=== PATIENT | male | born 1945 | race Caucasian/White ===

== ENCOUNTER 2017-08-29 09:20 | Inpatient (IN) | payer OTHER ==
[2017-08-29] MEDS ORDERED: DILTIAZEM-D5W 125MG/125ML DRIP 125 ML IV ×2 (10:00→16:30)
[2017-08-29 10:05] LABS: ADD MAN DIFF? NO
[2017-08-29] MEDS: ALBUTEROL 0.5% (NEB) 2.5 MG/0.5 ML AMP INH ×2 (10:08→14:41)
[2017-08-29] MEDS: IPRATROPIUM (NEB) 0.5 MG/2.5 ML AMP INH (10:08)
[2017-08-29 10:09] LABS: BASOPHILS % 0.1 % (0.0-2.0); EOSINOPHILS % 0.1 % (0.0-7.0); HEMATOCRIT 37.4 % (42.0-52.0); HEMOGLOBIN 12.4 g/dl (14.0-18.0); LYMPHOCYTES # 1.1 10^3/ul (0.8-2.9); LYMPHOCYTES % 12.7 % (15.0-51.0); MEAN CORPUSCULAR HEMOGLOBIN 30.8 pg (29.0-33.0); MEAN CORPUSCULAR HGB CONC 33.2 g/dl (32.0-37.0); MEAN CORPUSCULAR VOLUME 92.8 fl (82.0-101.0); MEAN PLATELET VOLUME 10.1 fl (7.4-10.4); MONOCYTE # 0.7 10^3/ul (0.3-0.9); MONOCYTES % 8.1 % (0.0-11.0); NEUTROPHIL # 6.6 10^3/ul (1.6-7.5); NEUTROPHILS % 78.8 % (39.0-77.0); PLATELET COUNT 272 10^3/UL (140-415); RED BLOOD COUNT 4.03 10^6/ul (4.70-6.10); RED CELL DISTRIBUTION WIDTH 12.5 % (11.5-14.5)
[2017-08-29 10:09] LABS: WHITE BLOOD COUNT 8.4 10^3/ul (4.8-10.8)
[2017-08-29] MEDS: METHYLPREDNISOLONE 125 MG INJ IV (10:16)
[2017-08-29] MEDS: DILTIAZEM 25 MG INJ IV (10:16)
[2017-08-29] MEDS: MAGNESIUM SULFATE 2 GM/50 ML 50 ML IVPB (10:17)
[2017-08-29 10:23] LABS: INR 1.07; PT RATIO 1.1
[2017-08-29 10:28] LABS: ALANINE AMINOTRANSFERASE 52 IU/L (13-69); ALBUMIN 4.2 g/dl (3.3-4.9); ALKALINE PHOSPHATASE 108 IU/L (42-121); ANION GAP 17 (8-16); ASPARTATE AMINO TRANSFERASE 29 IU/L (15-46); BILIRUBIN,INDIRECT 0.4 mg/dl (0-1.1); BILIRUBIN,TOTAL 0.4 mg/dl (0.2-1.3); BLOOD UREA NITROGEN 20 mg/dl (7-20); CALCIUM 9.2 mg/dl (8.4-10.2); CARBON DIOXIDE 25 mmol/L (21-31); CHLORIDE 96 mmol/L (97-110); CREATININE 0.97 mg/dl (0.61-1.24); GLUCOSE 132 mg/dl (70-220); POTASSIUM 4.8 mmol/L (3.5-5.1); SODIUM 133 mmol/L (135-144); TOTAL PROTEIN 7.2 g/dl (6.1-8.1)
[2017-08-29 10:39] LABS: B-TYPE NATRIURETIC PEPTIDE 9070 PG/ML (0-125); TROPONIN-I 0.069 ng/ml (0.00-0.12)
[2017-08-29] MEDS: SOD CHLORIDE 0.9% 500 ML IV (10:47)
[2017-08-29] MEDS: DILTIAZEM-D5W 125MG/125ML DRIP 125 ML IV (11:20)
[2017-08-29 12:21] LABS: LACTIC ACID 3.8 mmol/L (0.5-2.0)
[2017-08-29] MEDS: CEFTRIAXONE 1 GM/50 ML (PMX) 50 ML IVPB (12:46)
[2017-08-29] MEDS: AZITHROMYCIN 500MG/NS (PMX) 250 ML IV (13:14)
[2017-08-29 13:52] LABS: LACTIC ACID 3.8 mmol/L (0.5-2.0)
[2017-08-29] MEDS ORDERED: ONDANSETRON 4 MG INJ IV ×2 (14:00→16:30)
[2017-08-29] MEDS ORDERED: ACETAMINOPHEN 325 MG TAB PO ×2 (14:00→16:30)
[2017-08-29 16:17] LABS: LACTIC ACID 7.6 mmol/L (0.5-2.0)
[2017-08-29] MEDS ORDERED: VANCOMYCIN IV PER PHARMACY XX (16:30)
[2017-08-29] MEDS: DOCUSATE SODIUM 100 MG CAP PO ×2 (16:30→21:55)
[2017-08-29] MEDS ORDERED: NITROGLYCERIN (SL) 0.4 MG TAB SL (16:30)
[2017-08-29] MEDS ORDERED: morphine 2 MG INJ IV (16:30)
[2017-08-29] MEDS ORDERED: LEVALBUTEROL (NEB) 0.31 MG/3 ML AMP HHN (16:30)
[2017-08-29] MEDS: METOPROLOL 25 MG TAB PO ×2 (17:16→21:55)
[2017-08-29] MEDS: IPRATROPIUM (NEB) 0.5 MG/2.5 ML AMP HHN ×2 (18:23→20:28)
[2017-08-29] MEDS: LEVALBUTEROL (NEB) 0.31 MG/3 ML AMP HHN ×2 (18:23→20:28)
[2017-08-29 18:26] LABS: CREATINE KINASE 193 IU/L (23-200)
[2017-08-29] MEDS: SOD CHLORIDE 0.9% 1,000 ML IV (18:32)
[2017-08-29 18:38] LABS: CK INDEX 3.6; TROPONIN-I 0.071 ng/ml (0.00-0.12)
[2017-08-29 18:41] LABS: CK-MB 7.01 ng/ml (0.0-2.4)
[2017-08-29] MEDS: VANCOMYCIN 1.5 GM in SOD CHLORIDE 0.9% 250 ML IVPB (18:52)
[2017-08-29] MEDS: FAMOTIDINE 20 MG INJ IV (21:00)
[2017-08-29] MEDS: clonAZEPAM 0.5 MG TAB PO (21:55)
[2017-08-29] MEDS: CEFEPIME 1GM/50 ML (PMX) 50 ML IVPB (21:56)
[2017-08-29] MEDS: FUROSEMIDE 40 MG INJ IV (21:56)
[2017-08-29 23:08] LABS: CREATINE KINASE 181 IU/L (23-200)
[2017-08-29 23:20] LABS: CK INDEX 3.6
[2017-08-30] MEDS: IPRATROPIUM (NEB) 0.5 MG/2.5 ML AMP HHN ×7 (00:50→20:00)
[2017-08-30] MEDS: LEVALBUTEROL (NEB) 0.31 MG/3 ML AMP HHN ×7 (00:50→20:01)
[2017-08-30] MEDS: HALOPERIDOL 5 MG INJ IM (01:24)
[2017-08-30] MEDS: DILTIAZEM 25 MG INJ IV (07:03)
[2017-08-30] MEDS: VANCOMYCIN 1 GM 250 ML IVPB ×2 (08:07→20:35)
[2017-08-30] MEDS: FUROSEMIDE 40 MG INJ IV ×2 (08:11→21:09)
[2017-08-30] MEDS: ENOXAPARIN 40 MG/0.4 ML SYG SC (08:12)
[2017-08-30] MEDS: CEFEPIME 1GM/50 ML (PMX) 50 ML IVPB ×2 (08:13→21:11)
[2017-08-30] MEDS: FAMOTIDINE 20 MG INJ IV ×2 (08:14→21:10)
[2017-08-30] MEDS: DOCUSATE SODIUM 100 MG CAP PO (08:17)
[2017-08-30] MEDS: clonAZEPAM 0.5 MG TAB PO ×2 (08:17→21:08)
[2017-08-30] MEDS: METOPROLOL 25 MG TAB PO ×2 (08:18→21:09)
[2017-08-30] MEDS: ASPIRIN 81 MG TAB PO (08:18)
[2017-08-30] MEDS: SOD CHLORIDE 0.9% 1,000 ML IV (08:21)
[2017-08-30 08:56] LABS: ADD MAN DIFF? NO
[2017-08-30 09:04] LABS: WHITE BLOOD COUNT 13.3 10^3/ul (4.8-10.8)
[2017-08-30 09:04] LABS: BASOPHILS % 0.2 % (0.0-2.0); HEMATOCRIT 34.2 % (42.0-52.0); HEMOGLOBIN 11.7 g/dl (14.0-18.0); LYMPHOCYTES # 1.4 10^3/ul (0.8-2.9); LYMPHOCYTES % 10.9 % (15.0-51.0); MEAN CORPUSCULAR HEMOGLOBIN 30.9 pg (29.0-33.0); MEAN CORPUSCULAR HGB CONC 34.2 g/dl (32.0-37.0); MEAN CORPUSCULAR VOLUME 90.2 fl (82.0-101.0); MEAN PLATELET VOLUME 10.4 fl (7.4-10.4); MONOCYTE # 1.5 10^3/ul (0.3-0.9); MONOCYTES % 11.2 % (0.0-11.0); NEUTROPHIL # 10.2 10^3/ul (1.6-7.5); NEUTROPHILS % 77.2 % (39.0-77.0); PLATELET COUNT 252 10^3/UL (140-415); RED BLOOD COUNT 3.79 10^6/ul (4.70-6.10); RED CELL DISTRIBUTION WIDTH 12.6 % (11.5-14.5)
[2017-08-30 09:12] LABS: HEMOGLOBIN A1C 5.6 % (0-5.9)
[2017-08-30 09:21] LABS: LACTIC ACID 2.3 mmol/L (0.5-2.0)
[2017-08-30 09:31] LABS: ANION GAP 17 (8-16); BLOOD UREA NITROGEN 31 mg/dl (7-20); CALCIUM 8.8 mg/dl (8.4-10.2); CARBON DIOXIDE 21 mmol/L (21-31); CHLORIDE 101 mmol/L (97-110); CHOL/HDL RATIO 5.1 RATIO; CHOLESTEROL 148 mg/dl (100-200); CREATININE 1.19 mg/dl (0.61-1.24); GLUCOSE 120 mg/dl (70-220); HDL CHOLESTEROL 29 mg/dl (31-75); LDL CHOLESTEROL,CALCULATED 95 mg/dl; MAGNESIUM 2.5 mg/dl (1.7-2.5); POTASSIUM 5.1 mmol/L (3.5-5.1); SODIUM 134 mmol/L (135-144); TRIGLYCERIDES 118 mg/dl (0-149)
[2017-08-30] MEDS: DILTIAZEM-D5W 125MG/125ML DRIP 125 ML IV (09:50)
[2017-08-30 11:15] LABS: ADD UMIC NO; UR ASCORBIC ACID NEGATIVE (NEGATIVE); UR BILIRUBIN (Dip) NEGATIVE (NEGATIVE); UR BLOOD (Dip) NEGATIVE (NEGATIVE); UR CLARITY CLEAR (CLEAR); UR COLOR YELLOW (YELLOW); UR GLUCOSE (Dip) NEGATIVE (NEGATIVE); UR KETONES (Dip) NEGATIVE (NEGATIVE); UR LEUKOCYTE ESTERASE (Dip) NEGATIVE Leu/ul (NEGATIVE); UR NITRITE (Dip) NEGATIVE (NEGATIVE); UR SPECIFIC GRAVITY (Dip) 1.011 (1.003-1.030); UR TOTAL PROTEIN (Dip) NEGATIVE (NEGATIVE); UR UROBILINOGEN (Dip) NEGATIVE (NEGATIVE)
[2017-08-30 12:04] LABS: Allen Test ACCEPTAB; Arterial Base Excess -3.5 mmol/L (-3.0-3); Arterial Blood Gas Oxygen Sat 96.3 mmHG (95.0-100.0); Arterial COHb 0.3 % (0.0-3.0); Arterial Fraction of Oxyhgb 95.9 % (93.0-99.0); Arterial HCO3 20.7 mmol/L (22.0-26.0); Arterial MetHb 0.1 % (0.0-1.5); Arterial Total Hemglobin 12.5 g/dl (12.0-18.0); Arterial pCO2 34.8 mmhg (35-45); MODE NASAL CANNULA; Site Right Radial
[2017-08-30] MEDS: METHYLPREDNISOLONE 125 MG INJ IV ×2 (16:54→21:09)
[2017-08-30] MEDS: DIGOXIN 500 MCG INJ IV (17:20)
[2017-08-30] MEDS: ENOXAPARIN 80 MG/0.8 ML SYG SC (21:10)
[2017-08-31] MEDS: IPRATROPIUM (NEB) 0.5 MG/2.5 ML AMP HHN ×6 (00:21→20:35)
[2017-08-31] MEDS: LEVALBUTEROL (NEB) 0.31 MG/3 ML AMP HHN ×6 (00:21→20:35)
[2017-08-31] MEDS: DIGOXIN 500 MCG INJ IV (01:13)
[2017-08-31] MEDS: DOCUSATE SODIUM 100 MG CAP PO ×2 (04:30→14:13)
[2017-08-31] MEDS: METHYLPREDNISOLONE 125 MG INJ IV ×3 (06:04→22:13)
[2017-08-31] MEDS: SOD CHLORIDE 0.9% 1,000 ML IV ×2 (07:15→09:05)
[2017-08-31] MEDS: ENOXAPARIN 80 MG/0.8 ML SYG SC ×2 (08:19→21:39)
[2017-08-31] MEDS: FUROSEMIDE 40 MG INJ IV ×2 (08:20→21:37)
[2017-08-31] MEDS: FAMOTIDINE 20 MG INJ IV ×2 (08:22→21:34)
[2017-08-31] MEDS: clonAZEPAM 0.5 MG TAB PO ×2 (08:22→21:35)
[2017-08-31] MEDS: ASPIRIN 81 MG TAB PO (08:23)
[2017-08-31] MEDS: METOPROLOL 25 MG TAB PO ×2 (08:23→21:37)
[2017-08-31] MEDS: CEFEPIME 1GM/50 ML (PMX) 50 ML IVPB ×2 (08:25→21:34)
[2017-08-31 08:49] LABS: LACTIC ACID 1.8 mmol/L (0.5-2.0)
[2017-08-31 08:54] LABS: VANCOMYCIN,TROUGH 17.3 ug/ml (10.0-20.0)
[2017-08-31] MEDS: VANCOMYCIN 1 GM 250 ML IVPB (09:04)
[2017-08-31 22:20] LABS: AADO2 Arterial 231.1 mmHg (7.0-24.0); Allen Test ACCEPTAB; Arterial Base Excess -3.5 mmol/L (-3.0-3); Arterial Blood Gas Oxygen Sat 96.1 mmHG (95.0-100.0); Arterial COHb 0 % (0.0-3.0); Arterial HCO3 20.3 mmol/L (22.0-26.0); Arterial MetHb 0.1 % (0.0-1.5); Arterial Total Hemglobin 13.4 g/dl (12.0-18.0); Arterial pCO2 33.2 mmhg (35-45); Site Left Radial
[2017-09-01] MEDS: VANCOMYCIN 750 MG in DEXTROSE 5% 150 ML IVPB ×3 (00:15→21:51)
[2017-09-01] MEDS: LEVALBUTEROL (NEB) 0.31 MG/3 ML AMP HHN ×5 (01:07→17:44)
[2017-09-01] MEDS: IPRATROPIUM (NEB) 0.5 MG/2.5 ML AMP HHN ×5 (01:07→17:44)
[2017-09-01 04:48] LABS: MODE VAPOTHERM
[2017-09-01] MEDS: DOCUSATE SODIUM 100 MG CAP PO ×2 (06:36→16:28)
[2017-09-01] MEDS: METHYLPREDNISOLONE 125 MG INJ IV ×3 (06:36→22:23)
[2017-09-01] MEDS: CEFEPIME 1GM/50 ML (PMX) 50 ML IVPB ×2 (09:16→21:38)
[2017-09-01] MEDS: clonAZEPAM 0.5 MG TAB PO (09:17)
[2017-09-01] MEDS: FUROSEMIDE 40 MG INJ IV (09:17)
[2017-09-01] MEDS: ASPIRIN 81 MG TAB PO (09:17)
[2017-09-01] MEDS: LISINOPRIL 5 MG TAB PO (09:18)
[2017-09-01] MEDS: ENOXAPARIN 80 MG/0.8 ML SYG SC ×2 (09:19→21:41)
[2017-09-01] MEDS: METOPROLOL 25 MG TAB PO (09:26)
[2017-09-01] MEDS: FAMOTIDINE 20 MG INJ IV ×2 (09:27→21:38)
[2017-09-01 12:20] LABS: AADO2 Arterial 138.9 mmHg (7.0-24.0); Allen Test ACCEPTAB; Arterial Base Excess 0.9 mmol/L (-3.0-3); Arterial Blood Gas Oxygen Sat 97.4 mmHG (95.0-100.0); Arterial COHb 0.3 % (0.0-3.0); Arterial Fraction of Oxyhgb 96.8 % (93.0-99.0); Arterial MetHb 0.3 % (0.0-1.5); Arterial Total Hemglobin 12.9 g/dl (12.0-18.0); Arterial pCO2 38.4 mmhg (35-45); MODE HFNC; Site Left Radial
[2017-09-01] MEDS: SOD CHLORIDE 0.9% 500 ML IV (12:52)
[2017-09-01 12:55] LABS: PHOSPHORUS 4.4 mg/dl (2.5-4.9)
[2017-09-01 12:55] LABS: MAGNESIUM 2.7 mg/dl (1.7-2.5)
[2017-09-01 13:01] LABS: INR 1.16; PT RATIO 1.2
[2017-09-01 13:02] LABS: PARTIAL THROMBOPLASTIN TIME 33.3 Sec (25.0-35.0)
[2017-09-02] MEDS: METHYLPREDNISOLONE 125 MG INJ IV (06:58)
[2017-09-02] MEDS: DOCUSATE SODIUM 100 MG CAP PO ×2 (06:58→17:59)
[2017-09-02 08:56] LABS: ADD MAN DIFF? NO
[2017-09-02 09:00] LABS: WHITE BLOOD COUNT 11.3 10^3/ul (4.8-10.8)
[2017-09-02 09:00] LABS: BASOPHILS % 0.1 % (0.0-2.0); HEMATOCRIT 37.1 % (42.0-52.0); HEMOGLOBIN 12.1 g/dl (14.0-18.0); LYMPHOCYTES # 0.7 10^3/ul (0.8-2.9); LYMPHOCYTES % 5.8 % (15.0-51.0); MEAN CORPUSCULAR HEMOGLOBIN 30.3 pg (29.0-33.0); MEAN CORPUSCULAR HGB CONC 32.6 g/dl (32.0-37.0); MEAN PLATELET VOLUME 10.6 fl (7.4-10.4); MONOCYTE # 0.7 10^3/ul (0.3-0.9); MONOCYTES % 6.4 % (0.0-11.0); NEUTROPHIL # 9.8 10^3/ul (1.6-7.5); NEUTROPHILS % 86.7 % (39.0-77.0); PLATELET COUNT 272 10^3/UL (140-415); RED BLOOD COUNT 3.99 10^6/ul (4.70-6.10); RED CELL DISTRIBUTION WIDTH 12.8 % (11.5-14.5)
[2017-09-02 09:22] LABS: VANCOMYCIN,TROUGH 16.8 ug/ml (10.0-20.0)
[2017-09-02 09:24] LABS: ALANINE AMINOTRANSFERASE 62 IU/L (13-69); ALBUMIN 3.5 g/dl (3.3-4.9); ALBUMIN/GLOBULIN RATIO 1.29; ALKALINE PHOSPHATASE 70 IU/L (42-121); ANION GAP 13 (8-16); ASPARTATE AMINO TRANSFERASE 24 IU/L (15-46); BILIRUBIN,INDIRECT 0.3 mg/dl (0-1.1); BILIRUBIN,TOTAL 0.3 mg/dl (0.2-1.3); BLOOD UREA NITROGEN 51 mg/dl (7-20); CALCIUM 8.6 mg/dl (8.4-10.2); CARBON DIOXIDE 30 mmol/L (21-31); CHLORIDE 104 mmol/L (97-110); CREATININE 1.14 mg/dl (0.61-1.24); GLUCOSE 118 mg/dl (70-220); POTASSIUM 4.3 mmol/L (3.5-5.1); SODIUM 143 mmol/L (135-144); TOTAL PROTEIN 6.2 g/dl (6.1-8.1)
[2017-09-02] MEDS: CEFEPIME 1GM/50 ML (PMX) 50 ML IVPB ×2 (09:25→22:13)
[2017-09-02] MEDS: ASPIRIN 81 MG TAB PO (09:26)
[2017-09-02] MEDS: FUROSEMIDE 40 MG INJ IV (09:26)
[2017-09-02] MEDS: FAMOTIDINE 20 MG INJ IV ×2 (09:26→22:21)
[2017-09-02] MEDS: LISINOPRIL 5 MG TAB PO (09:27)
[2017-09-02] MEDS: ENOXAPARIN 80 MG/0.8 ML SYG SC ×2 (09:33→22:15)
[2017-09-02] MEDS: VANCOMYCIN 750 MG in DEXTROSE 5% 150 ML IVPB ×2 (12:03→22:13)
[2017-09-02] MEDS: METHYLPREDNISOLONE 40 MG INJ IV (22:13)
[2017-09-03] MEDS: DOCUSATE SODIUM 100 MG CAP PO ×2 (06:17→15:40)
[2017-09-03] MEDS: FUROSEMIDE 40 MG INJ IV (08:33)
[2017-09-03] MEDS: CEFEPIME 1GM/50 ML (PMX) 50 ML IVPB ×2 (08:33→21:20)
[2017-09-03] MEDS: METHYLPREDNISOLONE 40 MG INJ IV ×2 (08:34→21:20)
[2017-09-03] MEDS: ASPIRIN 81 MG TAB PO ×2 (08:35→09:00)
[2017-09-03] MEDS: LISINOPRIL 5 MG TAB PO ×2 (08:35→09:00)
[2017-09-03] MEDS: FAMOTIDINE 20 MG INJ IV ×2 (08:37→21:19)
[2017-09-03] MEDS: ENOXAPARIN 80 MG/0.8 ML SYG SC ×2 (08:58→21:21)
[2017-09-03 08:59] LABS: ADD MAN DIFF? NO
[2017-09-03 09:03] LABS: WHITE BLOOD COUNT 10.7 10^3/ul (4.8-10.8)
[2017-09-03 09:03] LABS: BASOPHILS % 0.1 % (0.0-2.0); HEMATOCRIT 39.1 % (42.0-52.0); HEMOGLOBIN 12.9 g/dl (14.0-18.0); LYMPHOCYTES # 1.3 10^3/ul (0.8-2.9); MEAN CORPUSCULAR HEMOGLOBIN 30.7 pg (29.0-33.0); MEAN CORPUSCULAR VOLUME 93.1 fl (82.0-101.0); MEAN PLATELET VOLUME 10.4 fl (7.4-10.4); MONOCYTE # 0.9 10^3/ul (0.3-0.9); MONOCYTES % 8.3 % (0.0-11.0); NEUTROPHIL # 8.5 10^3/ul (1.6-7.5); NEUTROPHILS % 78.9 % (39.0-77.0); PLATELET COUNT 279 10^3/UL (140-415); RED CELL DISTRIBUTION WIDTH 12.5 % (11.5-14.5)
[2017-09-03 09:56] LABS: ALANINE AMINOTRANSFERASE 57 IU/L (13-69); ALBUMIN 3.2 g/dl (3.3-4.9); ALBUMIN/GLOBULIN RATIO 1.23; ALKALINE PHOSPHATASE 65 IU/L (42-121); ANION GAP 9 (8-16); ASPARTATE AMINO TRANSFERASE 27 IU/L (15-46); BILIRUBIN,INDIRECT 0.4 mg/dl (0-1.1); BILIRUBIN,TOTAL 0.4 mg/dl (0.2-1.3); BLOOD UREA NITROGEN 48 mg/dl (7-20); CALCIUM 8.2 mg/dl (8.4-10.2); CARBON DIOXIDE 34 mmol/L (21-31); CHLORIDE 105 mmol/L (97-110); CREATININE 0.97 mg/dl (0.61-1.24); GLUCOSE 101 mg/dl (70-220); POTASSIUM 4.3 mmol/L (3.5-5.1); SODIUM 144 mmol/L (135-144); TOTAL PROTEIN 5.8 g/dl (6.1-8.1)
[2017-09-03] MEDS: VANCOMYCIN 750 MG in DEXTROSE 5% 150 ML IVPB ×2 (10:03→21:20)
[2017-09-03] MEDS: DIGOXIN 500 MCG INJ IV (18:07)
[2017-09-04] MEDS: DOCUSATE SODIUM 100 MG CAP PO ×2 (06:07→16:23)
[2017-09-04] MEDS: METHYLPREDNISOLONE 40 MG INJ IV ×2 (08:23→21:45)
[2017-09-04] MEDS: CEFEPIME 1GM/50 ML (PMX) 50 ML IVPB (08:24)
[2017-09-04] MEDS: VANCOMYCIN 750 MG in DEXTROSE 5% 150 ML IVPB (08:24)
[2017-09-04] MEDS: FAMOTIDINE 20 MG INJ IV ×2 (08:25→21:46)
[2017-09-04] MEDS: LISINOPRIL 5 MG TAB PO (08:25)
[2017-09-04] MEDS: FUROSEMIDE 40 MG INJ IV (08:25)
[2017-09-04] MEDS: ASPIRIN 81 MG TAB PO (08:25)
[2017-09-04] MEDS: ENOXAPARIN 80 MG/0.8 ML SYG SC ×2 (08:34→21:47)
[2017-09-04 10:29] LABS: ADD MAN DIFF? NO
[2017-09-04 10:36] LABS: BASOPHILS % 0.1 % (0.0-2.0); EOSINOPHILS % 0.2 % (0.0-7.0); HEMATOCRIT 45.7 % (42.0-52.0); HEMOGLOBIN 14.6 g/dl (14.0-18.0); LYMPHOCYTES # 2.1 10^3/ul (0.8-2.9); LYMPHOCYTES % 17.1 % (15.0-51.0); MEAN CORPUSCULAR HEMOGLOBIN 29.7 pg (29.0-33.0); MEAN CORPUSCULAR HGB CONC 31.9 g/dl (32.0-37.0); MEAN CORPUSCULAR VOLUME 93.1 fl (82.0-101.0); MEAN PLATELET VOLUME 10.8 fl (7.4-10.4); MONOCYTE # 1.1 10^3/ul (0.3-0.9); MONOCYTES % 8.6 % (0.0-11.0); NEUTROPHIL # 9.1 10^3/ul (1.6-7.5); NEUTROPHILS % 73.3 % (39.0-77.0); PLATELET COUNT 313 10^3/UL (140-415); RED BLOOD COUNT 4.91 10^6/ul (4.70-6.10); RED CELL DISTRIBUTION WIDTH 12.3 % (11.5-14.5)
[2017-09-04 10:36] LABS: WHITE BLOOD COUNT 12.4 10^3/ul (4.8-10.8)
[2017-09-04 10:56] LABS: ALANINE AMINOTRANSFERASE 65 IU/L (13-69); ALBUMIN 3.6 g/dl (3.3-4.9); ALBUMIN/GLOBULIN RATIO 1.33; ALKALINE PHOSPHATASE 66 IU/L (42-121); ANION GAP 11 (8-16); ASPARTATE AMINO TRANSFERASE 31 IU/L (15-46); BILIRUBIN,INDIRECT 0.8 mg/dl (0-1.1); BILIRUBIN,TOTAL 0.8 mg/dl (0.2-1.3); BLOOD UREA NITROGEN 45 mg/dl (7-20); CALCIUM 8.6 mg/dl (8.4-10.2); CARBON DIOXIDE 36 mmol/L (21-31); CHLORIDE 102 mmol/L (97-110); CREATININE 0.93 mg/dl (0.61-1.24); GLUCOSE 93 mg/dl (70-220); POTASSIUM 4.4 mmol/L (3.5-5.1); SODIUM 145 mmol/L (135-144); TOTAL PROTEIN 6.3 g/dl (6.1-8.1)
[2017-09-05] MEDS: DOCUSATE SODIUM 100 MG CAP PO ×2 (05:28→16:39)
[2017-09-05 07:52] LABS: ADD MAN DIFF? NO
[2017-09-05 08:00] LABS: BASOPHILS % 0.1 % (0.0-2.0); EOSINOPHILS % 0.1 % (0.0-7.0); HEMATOCRIT 45.2 % (42.0-52.0); HEMOGLOBIN 14.7 g/dl (14.0-18.0); LYMPHOCYTES # 1.2 10^3/ul (0.8-2.9); LYMPHOCYTES % 9.6 % (15.0-51.0); MEAN CORPUSCULAR HEMOGLOBIN 30.1 pg (29.0-33.0); MEAN CORPUSCULAR HGB CONC 32.5 g/dl (32.0-37.0); MEAN CORPUSCULAR VOLUME 92.4 fl (82.0-101.0); MEAN PLATELET VOLUME 11.5 fl (7.4-10.4); MONOCYTES % 8.5 % (0.0-11.0); NEUTROPHIL # 9.7 10^3/ul (1.6-7.5); NEUTROPHILS % 81.2 % (39.0-77.0); PLATELET COUNT 229 10^3/UL (140-415); RED BLOOD COUNT 4.89 10^6/ul (4.70-6.10); RED CELL DISTRIBUTION WIDTH 12.6 % (11.5-14.5)
[2017-09-05 08:24] LABS: MAGNESIUM 2.6 mg/dl (1.7-2.5)
[2017-09-05] MEDS: METHYLPREDNISOLONE 40 MG INJ IV (08:54)
[2017-09-05] MEDS: FAMOTIDINE 20 MG INJ IV ×2 (08:59→21:00)
[2017-09-05] MEDS: FUROSEMIDE 40 MG INJ IV (08:59)
[2017-09-05] MEDS: LISINOPRIL 5 MG TAB PO (08:59)
[2017-09-05] MEDS: ASPIRIN 81 MG TAB PO (08:59)
[2017-09-05] MEDS: ENOXAPARIN 80 MG/0.8 ML SYG SC (09:06)
[2017-09-05] MEDS ORDERED: BISACODYL (EC) 5 MG TAB PO (13:00)
[2017-09-05] MEDS: BISACODYL (EC) 5 MG TAB PO (13:36)
[2017-09-05] MEDS: APIXABAN 5 MG TABLET PO (21:00)
[2017-09-06] MEDS: DOCUSATE SODIUM 100 MG CAP PO ×3 (04:22→17:06)
[2017-09-06 05:30] LABS: ADD MAN DIFF? NO
[2017-09-06 05:37] LABS: BASOPHILS % 0.1 % (0.0-2.0); EOSINOPHILS # 0.1 10^3/ul (0.0-0.5); EOSINOPHILS % 1.2 % (0.0-7.0); HEMATOCRIT 43.7 % (42.0-52.0); HEMOGLOBIN 14.5 g/dl (14.0-18.0); LYMPHOCYTES # 1.8 10^3/ul (0.8-2.9); LYMPHOCYTES % 15.1 % (15.0-51.0); MEAN CORPUSCULAR HEMOGLOBIN 29.8 pg (29.0-33.0); MEAN CORPUSCULAR HGB CONC 33.2 g/dl (32.0-37.0); MEAN CORPUSCULAR VOLUME 89.7 fl (82.0-101.0); MEAN PLATELET VOLUME 10.2 fl (7.4-10.4); MONOCYTE # 1.2 10^3/ul (0.3-0.9); MONOCYTES % 9.6 % (0.0-11.0); NEUTROPHIL # 8.9 10^3/ul (1.6-7.5); NEUTROPHILS % 73.4 % (39.0-77.0); PLATELET COUNT 293 10^3/UL (140-415); RED BLOOD COUNT 4.87 10^6/ul (4.70-6.10); RED CELL DISTRIBUTION WIDTH 12.1 % (11.5-14.5)
[2017-09-06 05:37] LABS: WHITE BLOOD COUNT 12.1 10^3/ul (4.8-10.8)
[2017-09-06 06:28] LABS: ANION GAP 12 (8-16); BLOOD UREA NITROGEN 45 mg/dl (7-20); CALCIUM 8.6 mg/dl (8.4-10.2); CARBON DIOXIDE 30 mmol/L (21-31); CHLORIDE 102 mmol/L (97-110); CREATININE 0.73 mg/dl (0.61-1.24); GLUCOSE 95 mg/dl (70-220); MAGNESIUM 2.3 mg/dl (1.7-2.5); POTASSIUM 3.8 mmol/L (3.5-5.1); SODIUM 140 mmol/L (135-144)
[2017-09-06] MEDS: APIXABAN 5 MG TABLET PO ×2 (09:05→21:24)
[2017-09-06] MEDS: ASPIRIN 81 MG TAB PO (09:05)
[2017-09-06] MEDS: LISINOPRIL 5 MG TAB PO (09:06)
[2017-09-06] MEDS: FAMOTIDINE 20 MG INJ IV ×2 (09:06→21:24)
[2017-09-06] MEDS: FUROSEMIDE 40 MG INJ IV (09:06)
[2017-09-06] MEDS: METHYLPREDNISOLONE 40 MG INJ IV (09:42)
[2017-09-07] MEDS: DOCUSATE SODIUM 100 MG CAP PO ×2 (04:30→17:26)
[2017-09-07] MEDS: ASPIRIN 81 MG TAB PO (09:07)
[2017-09-07] MEDS: FAMOTIDINE 20 MG INJ IV (09:07)
[2017-09-07] MEDS: METHYLPREDNISOLONE 40 MG INJ IV (09:07)
[2017-09-07] MEDS: FUROSEMIDE 40 MG INJ IV (09:07)
[2017-09-07] MEDS: LISINOPRIL 5 MG TAB PO (09:08)
[2017-09-07] MEDS: APIXABAN 5 MG TABLET PO (09:08)
[2017-09-07 11:55] LABS: ADD MAN DIFF? NO
[2017-09-07 12:22] LABS: WHITE BLOOD COUNT 12.7 10^3/ul (4.8-10.8)
[2017-09-07 12:22] LABS: BASOPHILS % 0.2 % (0.0-2.0); EOSINOPHILS # 0.1 10^3/ul (0.0-0.5); EOSINOPHILS % 0.4 % (0.0-7.0); HEMATOCRIT 48.4 % (42.0-52.0); HEMOGLOBIN 16.4 g/dl (14.0-18.0); LYMPHOCYTES # 1.1 10^3/ul (0.8-2.9); MEAN CORPUSCULAR HEMOGLOBIN 30.5 pg (29.0-33.0); MEAN CORPUSCULAR HGB CONC 33.9 g/dl (32.0-37.0); MEAN PLATELET VOLUME 10.6 fl (7.4-10.4); MONOCYTE # 0.8 10^3/ul (0.3-0.9); NEUTROPHIL # 10.6 10^3/ul (1.6-7.5); NEUTROPHILS % 83.5 % (39.0-77.0); PLATELET COUNT 315 10^3/UL (140-415); RED BLOOD COUNT 5.38 10^6/ul (4.70-6.10); RED CELL DISTRIBUTION WIDTH 12.2 % (11.5-14.5)
[2017-09-21] MEDS ORDERED: PALIPERIDONE PALMITATE 234 MG XX (09:00)
== END 2017-09-07 18:58 | disposition home or self-care (01) | DRG 871 ==
LOC: E/R 09:20 → PP2 09-05 19:54 → MS4 08-30 21:32
PROC: 5A09357 Assistance with Respiratory Ventilation, Less than 24 Consecutive Hours, Continuous Positive Airway Pressure (ICD-10-PCS; principal; 2017-08-29)
DX: A41.9 Sepsis, unspecified organism (principal); G93.49 Other encephalopathy; J96.01 Acute respiratory failure with hypoxia; I50.43 Acute on chronic combined systolic (congestive) and diastolic (congestive) heart failure; J18.9 Pneumonia, unspecified organism; G92 Toxic encephalopathy; I42.9 Cardiomyopathy, unspecified; F03.90 Unspecified dementia, unspecified severity, without behavioral disturbance, psychotic disturbance, mood disturbance, and anxiety; I11.0 Hypertensive heart disease with heart failure; J44.1 Chronic obstructive pulmonary disease with (acute) exacerbation; I48.92 Unspecified atrial flutter; I48.91 Unspecified atrial fibrillation; D64.9 Anemia, unspecified; I44.7 Left bundle-branch block, unspecified; F20.9 Schizophrenia, unspecified; I69.998 Other sequelae following unspecified cerebrovascular disease; F43.10 Post-traumatic stress disorder, unspecified; R25.1 Tremor, unspecified
CPT/HCPCS: 36415; 36600; 70450; 71045; 80048; 80053; 80061; 80202; 81003; 82550; 82553; 82803; 82962; 83036; 83605; 83735; 83880; 84100; 84484; 85025; 85610; 85730; 87040; 87400; 93005; 93306; 94640; 94644; 94645; 94660; 94664; 96365; 96375; 97110; 97116; 97161; 99291-25

== ENCOUNTER 2017-10-08 15:05 | Emergency (ER) | payer OTHER ==
[2017-10-08 16:17] LABS: URINE PH (Dip) POC 5.5 (5.0-8.5)
[2017-10-08 16:17] LABS: URINE BLOOD (Dip) POC Negative (NEGATIVE); URINE GLUCOSE (Dip) POC Negative (NEGATIVE); URINE KETONES (Dip) POC Negative (NEGATIVE); URINE LEUKOCYTE EST (Dip) POC Negative (NEGATIVE); URINE NITRITE (Dip) POC Negative (NEGATIVE); URINE TOTAL PROTEIN POC Negative (NEGATIVE)
[2017-10-08] MEDS: SOD CHLORIDE 0.9% 500 ML IV (16:59)
[2017-10-08] MEDS: LORAZEPAM 2 MG INJ IV (16:59)
[2017-10-08 17:05] LABS: ADD MAN DIFF? NO
[2017-10-08 17:07] LABS: BASOPHILS % 0.4 % (0.0-2.0); EOSINOPHILS # 0.1 10^3/ul (0.0-0.5); EOSINOPHILS % 1.4 % (0.0-7.0); HEMATOCRIT 38.1 % (42.0-52.0); HEMOGLOBIN 12.8 g/dl (14.0-18.0); LYMPHOCYTES # 1.5 10^3/ul (0.8-2.9); LYMPHOCYTES % 18.1 % (15.0-51.0); MEAN CORPUSCULAR HEMOGLOBIN 30.7 pg (29.0-33.0); MEAN CORPUSCULAR HGB CONC 33.6 g/dl (32.0-37.0); MEAN CORPUSCULAR VOLUME 91.4 fl (82.0-101.0); MEAN PLATELET VOLUME 10.1 fl (7.4-10.4); MONOCYTE # 0.8 10^3/ul (0.3-0.9); MONOCYTES % 9.3 % (0.0-11.0); NEUTROPHIL # 5.9 10^3/ul (1.6-7.5); NEUTROPHILS % 70.4 % (39.0-77.0); PLATELET COUNT 214 10^3/UL (140-415); RED BLOOD COUNT 4.17 10^6/ul (4.70-6.10); RED CELL DISTRIBUTION WIDTH 13.6 % (11.5-14.5)
[2017-10-08 17:07] LABS: WHITE BLOOD COUNT 8.3 10^3/ul (4.8-10.8)
[2017-10-08 17:13] LABS: ANION GAP 18 (8-16); BLOOD UREA NITROGEN 10 mg/dl (7-20); CALCIUM 9.1 mg/dl (8.4-10.2); CARBON DIOXIDE 25 mmol/L (21-31); CHLORIDE 101 mmol/L (97-110); CREATININE 0.79 mg/dl (0.61-1.24); GLUCOSE 101 mg/dl (70-220); POTASSIUM 3.9 mmol/L (3.5-5.1); SODIUM 140 mmol/L (135-144)
[2017-10-08 17:20] LABS: ADD UMIC NO; UR ASCORBIC ACID NEGATIVE (NEGATIVE); UR BILIRUBIN (Dip) NEGATIVE (NEGATIVE); UR BLOOD (Dip) NEGATIVE (NEGATIVE); UR CLARITY CLEAR (CLEAR); UR COLOR YELLOW (YELLOW); UR GLUCOSE (Dip) NEGATIVE (NEGATIVE); UR KETONES (Dip) NEGATIVE (NEGATIVE); UR LEUKOCYTE ESTERASE (Dip) NEGATIVE Leu/ul (NEGATIVE); UR NITRITE (Dip) NEGATIVE (NEGATIVE); UR SPECIFIC GRAVITY (Dip) 1.011 (1.003-1.030); UR TOTAL PROTEIN (Dip) NEGATIVE (NEGATIVE); UR UROBILINOGEN (Dip) NEGATIVE (NEGATIVE)
[2017-10-08 17:25] LABS: TROPONIN-I 0.012 ng/ml (0.00-0.12)
== END 2017-10-08 19:53 | disposition home or self-care (01) ==
LOC: E/R 15:05
DX: R25.1 Tremor, unspecified (principal); I10 Essential (primary) hypertension; I50.9 Heart failure, unspecified; J44.9 Chronic obstructive pulmonary disease, unspecified; F17.210 Nicotine dependence, cigarettes, uncomplicated; Z79.82 Long term (current) use of aspirin
CPT/HCPCS: 36415; 71045; 80048; 81003; 84484; 85025; 96374; 99284-25